=== PATIENT | male | born 1960 | race Two or more races ===

== ENCOUNTER 2024-07-14 21:10 | Emergency (ER) | payer BC, MEDICAID, SELFPAY ==
[2024-07-14 21:11] VITALS: BMI 18.8
[2024-07-14 21:20] VITALS: BP 132/80; PULSE 119; RESP 18; TEMP 37; O2SAT 98
--- NOTE | 2024-07-14 21:22 | PD.EDRME ---
Rapid Medical Screening Exam RME Arrival date/time: 07/14/24 21:10 63 yo m present to ED for c/o cali dysfunction, recent prostate surgery on Jul 11. I have greeted and performed a focused initial assessment of this patient. A comprehensive ED assessment and evaluation of the patient, analysis of all test results, and completion of the medical decision making process will be conducted by additional ED providers. Chief Complaint: Urogenital-Male Time Seen by Provider: 07/14/24 21:19
--- NOTE | 2024-07-14 22:38 | EDNOTE_ITS ---
<Statement entered by Jackelin Vaughan MD - 07/15/24 03:22> As co-signing physician, I was present and available for consult prn. I concur with the plan and care as documented by the midlevel provider. ED Male Genitalurinary RME/HPI General Chief complaint: Urogenital-Male Stated complaint: CALI LEAKING Time Seen by Provider: 07/14/24 21:19 Arrival date/time: 07/14/24 21:10 63 year old male present to emergency room with c/o of cali leaking, recently had prostate surgery 4 days ago. SEVERITY: Symptoms are described as being severe with limitations on activities of daily living CONTEXT: The patient is unable to identify any inciting events. DURATION/TIMING: The symptoms started approximately 1 day ASSOCIATED SYMPTOMS: The patient is unable to identify any other associated symptoms. MODIFYING FACTORS: The patient is unable to identify any alleviating or aggravating symptoms. PERTINENT ROS: no fevers, no cough, no pleuritic pain, no ripping or tearing sensations, denies any lower extremity edema and no unilateral swelling, no chest pain/shortness of breath no nausea,vomiting, diarrhea, no dizziness/headache no rash no loc/syncope episode no abd/back pain no dsyuria,urgency,frequency REVIEW OF SYSTEMS: See History of Present Illness - with the exception of those mentioned in the history of present illness, all other systems reviewed and reported as negative GENERAL: In general the patient is awake, interactive, in an emergency department gurney. HEAD/EYES/EARS/NOSE/THROAT: normo-cephalic, atraumatic, mucus membranes are moist, anicteric, palpebral conjunctiva is pink, trachea is midline. CARDIOVASCULAR: regular rate and regular rhythm, no murmurs, heart sounds are not distant, strong pulses in all four extremities that are equal and symmetric bilateral upper and lower extremities, normal capillary refill. CHEST/PULMONARY: normal chest rise and fall, good air movement, clear to auscultation bilaterally, normal inspiratory to expiratory ratios without evidence of respiratory distress. NECK: No midline/Paraspinal tenderness, no step off ROM/Strenght intact No Kernig and bruzinski sign. No trauma ABDOMEN: soft, not tender, no masses appreciated + cali intact no gross hematuria BACK: normal range of motion without pain. NEUROLOGICAL: cranio-facial features are symmetric, moves all four extremities equally without obvious limitations or weakness. EXTREMITY: no tenderness to palpation over the long bones or large joints of the bilateral upper and lower extremities, no joint swelling, no joint erythema, no signs of trauma, no unilateral leg swelling and no peripheral edema. SKIN: warm, dry, well-perfused, no jaundice, no rash, no telangiectasias or petechia. PSYCH: calm, cooperative, no evidence of psychosis or agitation RME / HPI RME / HPI Narrative: 07/14/24 21:10 63 yo m present to ED for c/o cali dysfunction, recent prostate surgery on Jul 11. I have greeted and performed a focused initial assessment of this patient. A comprehensive ED assessment and evaluation of the patient, analysis of all test results, and completion of the medical decision making process will be conducted by additional ED providers. Related Data Home Medications ?Medication ?Instructions ?Recorded ?Confirmed pentosan polysulfate sodium 100 mg 200 mg PO BID #0 caps 02/04/17 05/31/19 capsule (Elmiron) ibuprofen 800 mg tablet 800 mg PO TID PRN 05/08/19 05/31/19 tramadol 50 mg tablet 50 mg PO QDAY PRN 05/08/19 05/31/19 Previous Rx's ?Medication ?Instructions ?Recorded aluminum-mag hydroxide-simethicone 5 ml PO QDAY #3,000 mL 03/12/24 400 mg-400 mg-40 mg/5 mL oral susp (Maalox Maximum Strength) ondansetron 4 mg disintegrating 4 mg PO Q8H PRN nausea and 03/12/24 tablet vomiting #14 tabs Allergies Allergy/AdvReac Type Severity Reaction Status Date / Time No Known Allergies Allergy Verified 07/14/24 21:13 Course Course Course Narrative: per nurse ,flush the cali no complication, no gross hematuria or leakage in ER. pt is comfortable to go home and follow up with specialist. Quality Measures none Vital Signs Vital signs: Vital Signs Temperature 98.6 F 07/14/24 21:20 Pulse Rate 119 H 07/14/24 21:20 Respiratory Rate 18 07/14/24 21:20 Blood Pressure 132/80 H 07/14/24 21:20 Pulse Oximetry (%) 98 07/14/24 21:20 Oxygen Delivery Method Room Air 07/14/24 21:20 Urogenital - Male Patient data External records reviewed:: None Clinical information provided by:: patient and spouse Social determinants that could affect healthcare access:: none Patient has the following chronic illnesses:: BPH How is presenting disease/condition affected by chronic disease/condition?: exacerbated by Evaluation data The following diagnostics were reviewed and interpreted by me:: other (specify) (n/a ) Lab and/or radiology exams considered but not ordered:: n/a Interpretation Summary: n/a Medications / Prescriptions Medications or Prescriptions considered but not ordered:: n/a Medication administrations:: n/a Consultations Consultation(s) initiated? (list below): No Diagnosis Urogenital Male Differential Diagnosis: other (cali dysfunction, ) Most likely diagnosis given after review of the tests above:: cali readustment Admission Indicated Admission indicated?: not indicated Admission Request Was there a request for admission?: No Disposition Plan Disposition Plan: Discharge Discharge Attestation Discharge Attestation: The patient and all family members were given an opportunity to ask questions and understood the discharge instructions. Discharge instructions specifically effects, indications for sooner follow up or return to the emergency department, and the expected course of current diagnosis. Patient condition: Stable Discharge Plan Plan Patient Disposition: HOME (Self Care) Prescriptions/Referrals Prescriptions/Med Rec: No Action ibuprofen 800 mg tablet 800 mg PO TID PRN tramadol 50 mg tablet 50 mg PO QDAY PRN pentosan polysulfate sodium [Elmiron] 100 MG capsule 200 mg PO BID Qty: 0 alum-mag hydroxide-simeth [Maalox Maximum Strength] 400-400-40 mg/5 mL suspension 5 ml PO QDAY Qty: 3000 0RF ondansetron 4 mg tablet,disintegrating 4 mg PO Q8H PRN (Reason: nausea and vomiting) Qty: 14 0RF Problem List Clinical Impression: Encounter for Cali catheter fitting and adjustment Patient/Caregiver Discharge Instructions Print Language: Azeri Stand Alone Forms: [facility]idget[facility] Award Info., Patient Portal Info Letter
--- NOTE | 2024-07-14 22:44 | PC.NURSE ---
Patient noted to have 18F FC intact and draining to gravity. Jacobo placement checked. Balloon inflated appropriately. FC flushed and catheter patent and draining, no leak noted.
== END 2024-07-14 22:46 | disposition home or self-care (01) ==
PROVIDERS: Emergency Provider Emergency Medicine; PCP Nurse Practitioner Family
DX: Z46.6 Encounter for fitting and adjustment of urinary device (principal); N40.0 Benign prostatic hyperplasia without lower urinary tract symptoms
CPT/HCPCS: 99282

== ENCOUNTER 2025-04-01 11:00 | Outpatient (RCR) | payer BC, MEDICAID, SELFPAY ==
--- NOTE | 2025-04-01 11:13 | PT.OIERPT ---
PT OP Initial Eval Patient Information Outpatient Physical Therapy Treatment Date: 04/01/25 Visit Reasons: generslized weakness Medical Diagnosis: R53.1 M62.81 Start of Care: 04/01/25 Date of Onset: June 2024 Smoking Status Smoking Status: Never smoker Initial Assessment Subjective: Pt is 64 yr old male who is not sure why he is here. He says he is weaker and has lost weight since prostate cancer and prostate removal but he can walk, squat and run. It hurts when he tries to get up after squatting in the back of the legs. This started after proctectomy in June. PMH: HTN Imaging: none Pt goal: not sure since he doesn't have limitations Objective: SLR: B 85 deg Strength: Quads: 4/5 HS: 4/5 Gait: symmetrical and normal gait speed Hip AROM: ER: full in sitting with crossing legs Assessment: Pt presents with good LE strength and ROM of hips and knees and no pain with manual muscle testing. Pt doesn't need skilled therapy since he doesn't have functional limitations or deficits and is independent with functional mobility. Short Term and Retirement Goals Eval and D/C Treatment Plan Eval and D/C Certification Dates: 04/01/25 to 04/13/25 Procedure Charges OP PT Eval Mod Complex 30 minutes: Yes
== END 2025-04-19 23:59 | disposition home or self-care (01) ==
LOC: CPTX 11:00
DX: M62.81 Muscle weakness (generalized) (principal); I10 Essential (primary) hypertension
CPT/HCPCS: 97162